=== PATIENT | male | born 1950 | race Caucasian/White ===

== ENCOUNTER → 2016-11-20 | Outpatient (CLI) | payer OTHER ==
[2016-11-20 13:23] LABS: CHOLESTEROL/HDL RATIO 4.5
== END | disposition home or self-care (01) ==
LOC: C.LABMFLN 07:18
PROVIDERS: ATTEND Family Medicine
DX: R73.09 Other abnormal glucose (principal); E78.5 Hyperlipidemia, unspecified

== ENCOUNTER 2020-07-14 06:40 | Observation (INO) ==
--- NOTE | 2020-06-08 15:41 | PAT Medication Instructions ---
Medication Instructions Date of Service June 08, 2020 Home Medications Medication Instructions Recorded amlodipine 5 mg tablet 5 mg PO DAILY #90 tab 04/21/20 tamsulosin 0.4 mg capsule 0.4 mg PO QAM amlodipine 5 mg tablet 5 mg PO DAILY Take morning of surgery With a small sip of water, OTHERWISE NOTHING TO EAT OR DRINK AFTER MIDNIGHT: tamsulosin 0.4 mg capsule 0.4 mg PO QAM amlodipine 5 mg tablet 5 mg PO DAILY Other Notes If you have any questions please call us at [phone] or [phone] or [phone] or [phone]
--- NOTE | 2020-06-12 09:56 | Anesthesiology Consultation ---
Date of Service June 12, 2020 Assessment & Plan (1) Encounter for pre-operative examination: COVID screening: Per assessment on 06/12: Travel screen negative, no known COVID- 19 positive contacts or current COVID-19 related symptoms. Patient is fully vaccinated. Surgeon arranging preop COVID testing. Awaiting results. Chart Review Chart Review: Acceptable Risk for Surgery and Patient seen in Pre Admission Testing Teaching & Discussion Pre-Anesthesia Teaching/Discussion Notes: Instructed NPO after midnight before surgery,except medications with 15 cc of water. Medication instructions provided according to the PAT guidelines. History Surgery Operation Date: 07/14/20 07:15 Proposed Procedures p Left Total Knee Arthroplasty - Claudio Sanders MD Height/Weight Height: 5 ft 6 in Weight: 84.3 kg Allergies Allergy/AdvReac Type Severity Reaction Status Date / Time No Known Drug Allergies Allergy Verified 05/30/20 11:18 Medications Home Medications Medication Instructions Recorded Confirmed Last Taken tamsulosin 0.4 mg capsule 0.4 mg PO QAM #30 cap 01/14/19 05/30/20 Unknown amlodipine 5 mg tablet 5 mg PO DAILY #90 tab 04/21/20 05/30/20 Unknown Wheeled Walker #1 ea 06/12/20 06/12/20 Unknown Past Medical History Medical History BPH (benign prostatic hyperplasia) History of basal cell carcinoma History of kidney stones History of squamous cell carcinoma in situ of skin Hx of migraines Hypertension Osteoarthritis Exercise / Class Metabolic Activity II 4-5 Yardwork/Stairs/Walk up hill Past Family History Family History Father Diabetes Family history of diabetes mellitus Daughter Breast cancer Mother Ovarian cancer Uncle Prostate cancer Other No family history of adverse response to anesthesia Denies family history of Myocardial infarction Colorectal cancer Past Surgical History Surgical History H/O arthroscopic knee surgery Left History of colonoscopy History of lithotripsy History of tooth extraction Status post Mohs surgery on scalp Past Anesthesia History No Family Hx of Anesthesia Complications and Other ("slow to wake" x1 episode, no known hx of reintubation) History of PONV History of PONV (x1 remote episode) and Hx of Motion Sickness Social History Smoking Status: Former smoker tobacco type: cigarettes Do You Dip or Chew Tobacco: No Smoking End Date: Quit age 18 Hx Alcohol Use: Yes alcohol intake frequency: holidays/special occasions only Hx Substance Use: No substance use type: does not use Review of Systems Patient denies chest pain, shortness of breath, dyspnea on exertion, fever, chills, cough, wheezing, palpitations. Physical Exam Vital Signs VITALS BP 145/77 P 64 TEMP 98.0 SP02 97%RA RESP 16 PHYSICAL Full cervical extension range of motion. Full TMJ range of motion. TMD 3 finger breaths Mallampati Score 3 Dentition: intact, + gold crowns (molars) Lungs: clear throughout to auscultation Cardiac: regular rate and rhythm, no murmurs noted Spine: normal Carotid arteries: negative bruit Extremities: no edema Testing Laboratory Results 06/12/20 10:12 06/12/20 10:12 PT 10.7 Seconds (9.0-12.0) 06/12/20 10:12 INR 1.1 (0.9-1.1) 06/12/20 10:12 APTT 27.1 Seconds (21.0-31.0) 06/12/20 10:12 Blood Type O Negative 06/12/20 10:12 Antibody Screen NEGATIVE 06/12/20 10:12 Electrocardiogram Date: 11/29/19 Findings: + NSR @ (65) Chest X-Ray Date: 06/12/20 FINDINGS: Cardiomediastinal and hilar silhouettes are within normal limits. Calcified plaque the thoracic aorta. No pneumothorax, pleural effusion, airspace consolidation or overt pulmonary edema. Bones of the chest appear grossly intact. IMPRESSION: No acute process.
[2020-06-12 10:29] LABS: Basophils # (auto) 0.03 K/uL (0-0.2); Basophils % (auto) 0.4 %; Eosinophils # (auto) 0.11 K/uL (0-0.5); Eosinophils % (auto) 1.6 %; Hemoglobin 15.4 g/dL (14.0-18.0); Immature Granulocytes # (auto) 0.01 K/uL (0.00-0.02); Immature Granulocytes % (auto) 0.1 %; Lymphocytes # (auto) 1.77 K/uL (1.2-3.4); Lymphocytes % (auto) 26.5 %; Mean Corpuscular Hemoglobin 27.9 pg (25-34); Mean Corpuscular Hgb Conc 34.2 g/dL (32-36); Mean Corpuscular Volume 81.7 fL (80-100); Mean Platelet Volume 9.4 fL (7.4-10.4); Monocytes # (auto) 0.66 K/uL (0.11-0.59); Monocytes % (auto) 9.9 %; Neutrophils # (auto) 4.09 K/uL (1.4-6.5); Neutrophils % (auto) 61.5 %; Platelet Count 261 K/uL (130-400); RDW Coefficient of Variation 12.8 % (11.5-14.5); RDW Standard Deviation 38.5 fL (36.4-46.3); Red Blood Count 5.51 M/uL (4.7-6.1); White Blood Count 6.67 K/uL (4.8-10.8)
--- NOTE | 2020-06-12 10:46 | XRay Report ---
XR chest Pre-admission PA/Lat HISTORY: 70 years-old Male pat chronic left knee pain. Osteoarthritis. Preoperative examination of t he chest. COMPARISON: None TECHNIQUE: PA and lateral views of the chest FINDINGS: Cardiomediastinal and hilar silhouettes are within normal limits. Calcified plaque the thoracic aorta . No pneumothorax, pleural effusion, airspace consolidation or overt pulmonary edema. Bones of the ch est appear grossly intact. IMPRESSION: No acute process. ACT 112: Negative or not required by law. The above report was generated using voice recognition software. It may contain grammatical, syntax o r spelling errors. Electronically signed by: Fernando Moreland M.D. 06/12/2020 10:45 AM
[2020-06-12 10:47] LABS: INR 1.1 (0.9-1.1); Partial Thromboplastin Time 27.1 Seconds (21.0-31.0); Prothrombin Time 10.7 Seconds (9.0-12.0)
[2020-06-12 11:40] LABS: BUN Creatinine Ratio 15.4 (10-20); Calcium 8.7 mg/dl (8.5-10.1); Est GFR (Non-African American) 70.8; Potassium 4.2 mmol/L (3.5-5.1)
--- NOTE | 2020-07-08 09:13 | History and Physical Report ---
DATE OF ADMISSION: 07/14/2020 CHIEF COMPLAINT: Persistent left knee pain and discomfort. HISTORY OF PRESENT ILLNESS: The patient is a 70-year-old gentleman who presents specifically for surgical treatment of his left knee. He has been a long-term patient of mine and I scoped his left knee 12 years ago. He did pretty well, but over the past 5 years, he developed increased pain, discomfort, deformity and instability in his knee. He has been through extensive conservative treatment including therapy, injections, and oral medicines which have become less successful over time. He has got pretty global pain in his knee. It is increased with weightbearing. He limps more as the day goes on. It swells more as the day goes on. He now would like to have his knee fixed. PAST MEDICAL HISTORY: 1. Hypertension. 2. BPH. 3. Kidney stones. 4. Squamous cell skin cancer. PAST SURGICAL HISTORY: 1. Left knee arthroscopy done 12/07/2008. 2. Lithotripsy. ALLERGIES: None. CURRENT MEDICATIONS: 1. Amlodipine. 2. Tamsulosin. SOCIAL HISTORY: A 70-year-old male. Very active. Does not smoke. FAMILY HISTORY: Significant for diabetes, breast cancer, ovarian cancer, prostate cancer, colorectal cancer, coronary artery disease. REVIEW OF HISTORY: Negative for diabetes, neurologic problem, vascular problems or bleeding disorders. No chest pain or shortness of breath. No history of DVT or PE. No bleeding problems. PHYSICAL EXAMINATION GENERAL: Shows a pleasant, middle-aged male, looks to be in pretty good health. HEENT: Benign. NECK: Supple, no lymphadenopathy. LUNGS: Clear to auscultation. HEART: Has a regular rate and rhythm. ABDOMEN: Soft, nontender, nondistended. EXTREMITIES: Grossly neurovascularly intact except as follows. Examination of the left knee reveals the patient ambulates independently. He does limp a little bit on this left side. He has got varus alignment to his knee with a varus thrust with weightbearing. He has got well-healed arthroscopic portal sites. Small knee effusion. He is tender over the medial joint line. Range of motion about 5 degrees short of full extension to 125 degrees of flexion. There is no instability. X-RAYS: X-rays of the left knee reviewed. It shows advanced left knee DJD. He has got complete loss of his medial joint space. He has got subchondral sclerosis. He has got osteophytes off the medial femoral condyle and medial tibial plateau. ASSESSMENT: A 70-year-old male with a history of a left knee arthroscopy 12 years ago with progressive left knee pain and discomfort and advanced degenerative joint disease. He has failed conservative treatment and would like to have his left knee replaced. PLAN: We will take him to the operating room and do a left total knee replacement. The risks and benefits of this procedure were explained to the patient including but not limited to DVT, PE, , infection, neurological injury, vascular injury, bleeding problem, pain, limited range of motion, stiffness, failure to relieve symptoms, incomplete relief of symptoms, need for further surgery in the future, fracture, leg length inequality, nerve palsy, etc. The patient understands and desires to proceed. Informed consent was obtained. As far as discharge plans, he is planning to be discharged to home using [facility] home health program.
[~2020-07-14 06:40] MED LIST: ACETAMINOPHEN 500 MG TAB PO SCH; BUPIVACAINE 0.5 % 5 MG/1 ML PF 10ML VIAL ONE; BUPIVACAINE LIPOSOME/PF 266 MG, BUPIVACAINE/EPINEPHRINE 50 ML, SODIUM CHLORIDE 0.9% 30 ... INFIL SCH; EPINEPHrine INJ 1 MG/ML AMP ONE; FAMOTIDINE 20 MG TAB PO SCH; GABAPENTIN 300 MG CAP PO SCH; LR 500ML BOLUS, THEN 15ML/HR IV SCH; LR 60ML/HR IV SCH; METOCLOPRAMIDE HCL 10 MG TABLET PO SCH; ROPIVACAINE 0.5% 5 MG/ML 30 ML VIAL ONE; TRANEXAMIC ACID 1,000 MG **IV Intra-op IV SCH
--- NOTE | 2020-07-14 06:53 | History & Physical Bridge Note ---
Date of Service July 14, 2020 History & Physical Bridge Note I have examined the patient, reviewed the History & Physical and in the interval since the performance of the History & Physical I have noted the following changes of clinical significance: no changes noted
[2020-07-14] MEDS ORDERED: MIDAZOLAM HCL 1 MG/ML 2ML VIAL ONE (07:19)
[2020-07-14] MEDS ORDERED: fentaNYL citrate 100 MCG/2 ML VIAL ONE (07:19)
[2020-07-14] MEDS ORDERED: SODIUM CHLORIDE 0.9% PF 50 ML VIAL ONE (08:55)
[2020-07-14] MEDS ORDERED: BUPIVACAINE LIPOSOME 1.3% 266 MG/20 ML VIAL ONE (08:55)
[2020-07-14] MEDS ORDERED: BUPIVACAINE 0.25% 30 ML VIAL ONE (08:56)
[2020-07-14] MEDS ORDERED: EPINEPHrine INJ 1 MG/ML AMP ONE ×2 (08:56→09:08)
[2020-07-14] MEDS: ceFAZolin 2000MG 2,000 MG/15 ML SYR IV SCH ×3 (09:08→18:16)
[2020-07-14] MEDS ORDERED: ePHEDrine sulfate 50 MG/ML AMP IV PRN (09:14)
[2020-07-14] MEDS ORDERED: ATROPINE SULFATE 0.1 MG/ML 10ML SYR IV PRN (09:14)
[2020-07-14] MEDS ORDERED: PROPOFOL IV EMULSION 10 MG/ML 20 ML VIAL IV ONE ×3 (09:16→10:01)
[2020-07-14] MEDS ORDERED: ONDANSETRON INJ 2 MG/ML 2 ML VIAL ONE (09:52)
--- NOTE | 2020-07-14 11:06 | Operative Report ---
Post Operative Report Pre & Post Diagnosis Operation Date: 07/14/20 08:50 Pre-Op Diagnosis: Left Knee Advanced Degerative Joint Disease Post-Op Diagnosis: Left Knee Advanced Degenerative Joint Disease I identified the patient and participated in the time-out.: Yes Procedure Operation Date: 07/14/20 08:50 Actual Procedures p Left Total Knee Arthroplasty(Left) - Claudio Sanders MD Surgeon Claudio Sanders MD Documentation Improvement Specialist VICTORIA Colunga Estimated Blood Loss 50 Findings Consistent with Post-Op Diagnosis Operative findings revealed advanced left knee DJD with extensive grade 4 [id number] disease and eburnation of the medial compartment. He had a varus deformity to his knee and a flexion contracture. Moderate-sized joint effusion. Fluids 700 cc. Specimens Left knee sent for pathology. Drains None Anesthesia Type Spinal MAC Complications none Disposition Accompanied Patient To Recovery: No Disposition: Recovery Room Indications Patient 70-year-old fairly active gentleman has had a long history of left knee problems. He had his left knee scoped about 12 years ago did pretty well until about 5 years ago when he started up increased pain discomfort. He has been through extensive conservative treatment of years which became less successful. X-rays show advanced medial compartment arthritis. He elected proceed with surgical treatment. Description of Procedure Operative implants consisted of: 1 Biomet Vanguard size 67.5 left posterior stabilized femoral component. 2. Biomet size 75 tibial tray. 3. 12 mm posterior stabilized polyethylene insert. 4. 31 x 8 all polypatella. The patient was taken to the operating, identified, placed on the operating table supine position but all contact areas were properly padded. IV antibiotics tried by anesthesia team. A spinal anesthetic and abductor canal block had provided in the holding area. Scott catheter was placed in sterile fashion for the left atrium was then placed in the left lower extremities and prepped draped in usual sterile fashion. The left leg was elevated exsanguinated with use of an Esmarch and turns placed at 3 mmHg. An anterior approach to the left knee was then performed to longitudinal incision centered over the patella. Sharp dissection was carried through subcutaneous tissue down the extensor mechanism. Medial parapatellar arthrotomy incision was made. Some subperiosteal dissection was carried out medially. The fat pad was resected from each patella tendon. Lateral patellofemoral ligament was released. Patella subluxated laterally and the knee was flexed. Of note there was quite a bit of scarring underneath the patella te ndon I took great care to remove the fat tab without damaging the tendon. The patella was subluxated laterally. The knee was flexed. Lateral patellofemoral ligament was released. The osteophytes were taken off distal femur. The ACL and PCL were then released from distal femur and the tibia subluxated anteriorly. The external treatment line jig was then placed in the interface the tibia and adjusted 16 mm medially. Proximal tibial cut was made remove about a millimeter bone from most efficient aspect medial till plateau. Some osteophytes were taken off medial and posterior medially. Tibia sized to a size 75. Attention drawn the femur. The distal femur exam with a sharp drop with intramedullary canal was suction. A left 6 degree valgus cutting guide was placed. Distal femoral cutting block was pinned in place but distal femoral cut was made to take an additional 3 mm of bone off distal femur. The femur was then sized to a size 67.5. The AP cutting block was pinned parallel to the epicondylar axis which was 4 degrees of external rotation. The anterior cut, anterior chamfer, posterior cut, posterior chamfer cuts were made. The box cutting guide was placed in just slight lateral and the box cut was made. The knee was flexed. The remnants of the medial and lateral menisci were excised. The osteophytes were taken off the posterior aspect of femur. Trial femoral component was placed. The tibial tray was pinned in maximum external rotation and the drill and stem punch were used to create defect in proximal tibia for the tibial tray. The knee was then trialed and 12 mm insert fit most appropriately. Attention was then drawn to the patella. Patella was cleaned of all soft tissue. Patella thickness measured 23 mm in thickness was cut down to 15. Was sized to a size 31 patella. The lug holes were drilled for 31 patella. The lateral osteophyte is moved. Patella button was placed. Knee was taken through range of motion patella tracked nicely with no thumbs test. Attention drawn to place the permanent components. All trial components were removed. Bone plug was placed in the distal femur limit blood loss put a double batch Palacos G cement was mixed. A Biomet Calcivisguard size 67.5 left posterior stabilized femoral component, a size 75 tibial tray, a 12 mm posterior stabilized polyethylene insert, and a 31 x 8 all polypatella were then cemented in place. The knee was brought out into full extension until cement hardened. Final cement check was then performed. The pericapsular tissues were injected with total 100 cc of combination of 20 cc of Exparel, 30 cc normal saline, 50 cc of quarter percent Marcaine with epinephrine. Patient did receive 1 g tranexamic acid per the tourniquet was then let down for final tourniquet time of 61 minutes. Hemostasis assured use electrocautery. Extensor mechanism closed with combination 1 PDS suture #1 Vicryl suture in [id number] fashion. Extensor mechanism checked found to be intact with subcutaneous tissue then closed with 2 Dexon suture in buried nerve fascia skin was closed skin jerry. Legs then cleaned and dried a sterile dressing was Xeroform, 4 x 4's, sterile cast padding, Rhys bandage were applied. Patient then transferred to the recovery room in stable condition. Patient tolerated the procedure well and there were no complications. Karl Colunga, my physician social science research assistant, was present for the entire procedure. His assistance was essential and required for appropriate patient positioning, prepping and draping, surgical exposure, performing the technical details of the operation, placement the implants, closure of the wound, and placement of the sterile bandage. I attest to the content of the Intraoperative Record and any orders documented therein. Any exceptions are noted below.
[2020-07-14] MEDS ORDERED: oxyCODONE HCL IR 5 MG TAB (IMMEDIATE RELEASE) PO PRN ×2 (11:20→12:50)
[2020-07-14] MEDS ORDERED: diphenhydrAMINE 50 MG/ML VIAL IV STA (11:23)
--- NOTE | 2020-07-14 11:23 | XRay Report ---
XR knee LT 1 or 2V routine HISTORY: 70 years-old Male Surgical Post Op left knee total joint arthroplasty COMPARISON: Left knee radiographs 06/12/2020 TECHNIQUE: 2 views of the left knee FINDINGS: Left knee total joint arthroplasty and patella resurfacing. Anterior midline skin jerry are noted a long with expected postsurgical soft tissue swelling and deep tissue air. No acute fracture, alignmen t or opaque foreign body. IMPRESSION: Left knee total joint arthroplasty with expected postoperative changes. ACT 112: Negative or not required by law. The above report was generated using voice recognition software. It may contain grammatical, syntax o r spelling errors. Electronically signed by: Devonte Moreland M.D. 07/14/2020 11:21 AM
[2020-07-14] MEDS ORDERED: diphenhydrAMINE 50 MG/ML VIAL ONE (11:24)
--- NOTE | 2020-07-14 11:41 | Anesthesiology Progress Note ---
Date of Service July 14, 2020 Anesthesia Post Procedure Vital Signs Vital Signs: Temp Pulse Resp BP Pulse Ox 07/14/20 11:36 36.2 C L 63 17 114/62 95 07/14/20 11:25 66 15 101/60 94 07/14/20 11:15 74 19 95/62 L 93 07/14/20 11:05 75 18 93/59 L 93 07/14/20 10:59 36.3 C L 69 17 103/54 L 92 07/14/20 07:36 37.2 C 62 16 145/77 H 95 Transfer of Care Handoff Completed per policy Notes Mental Status: alert / awake / arousable Patient Amnestic to Procedure: Yes Nausea / Vomiting: adequately controlled Pain: adequately controlled Airway Patency, RR, SpO2: stable & adequate BP & HR: stable & adequate Hydration State: stable & adequate Neuraxial Anesthesia: was administered and sensory block is resolving Anesthetic Complications: no major complications apparent
[2020-07-14] MEDS ORDERED: NALOXONE HCL 0.4 MG/1 ML VIAL/CARP IV PRN (12:50)
[2020-07-14] MEDS ORDERED: ALUMINUM/MAGNESIUM SUSP 30 ML UDC PO PRN (12:50)
[2020-07-14] MEDS ORDERED: ONDANSETRON INJ 2 MG/ML 2 ML VIAL IV PRN (12:50)
[2020-07-14] MEDS ORDERED: NON-FORMULARY MEDICATION (Doxycycline Monohydrate 100 mg capsule) PO SCH (12:50)
[2020-07-14] MEDS ORDERED: HYDROmorphone INJ 0.5 MG/0.5 ML SYR IV PRN (12:50)
[2020-07-14] MEDS ORDERED: METOCLOPRAMIDE HCL INJ 5 MG/ML 2 ML VIAL IV PRN (12:50)
[2020-07-14] MEDS ORDERED: bisacodyL 10 MG SUPP PR PRN (12:50)
[2020-07-14] MEDS ORDERED: MAGNESIUM HYDROXIDE SUSP 30 ML UDC PO PRN (12:50)
[2020-07-14] MEDS: KETOROLAC TROMETHAMINE 15 MG/ML VIAL IV SCH ×3 (13:17→22:16)
[2020-07-14] MEDS: ACETAMINOPHEN 500 MG TAB PO SCH ×2 (13:17→21:31)
[2020-07-14] MEDS ORDERED: SODIUM CHLORIDE 0.9% 1000ML 1,000 ML IV SCH (13:30)
[2020-07-14] MEDS ORDERED: ACETAMINOPHEN 500 MG TAB PO SCH (14:00)
[2020-07-14] MEDS ORDERED: TRANEXAMIC ACID / 0.7% NACL 1,000 MG/100 ML BAG IV SCH (17:00)
[2020-07-14] MEDS: FERROUS GLUCONATE 324 MG TAB PO SCH (17:45)
[2020-07-14] MEDS: ASCORBIC ACID 500 MG TAB PO SCH (17:46)
[2020-07-14] MEDS ORDERED: SENNA 8.6 MG TAB PO SCH (21:00)
[2020-07-14] MEDS ORDERED: ASPIRIN 81 MG ECTAB PO SCH (21:00)
[2020-07-14] MEDS: TAPENTADOL HCL ER 50 MG TABCR PO SCH (21:29)
[2020-07-14] MEDS: ASPIRIN 81 MG ECTAB PO SCH (21:30)
[2020-07-14] MEDS: DOCUSATE SODIUM 100 MG CAP PO SCH (21:31)
[2020-07-15] MEDS: ceFAZolin 2000MG 2,000 MG/15 ML SYR IV SCH (03:08)
[2020-07-15] MEDS: KETOROLAC TROMETHAMINE 15 MG/ML VIAL IV SCH ×2 (06:04→11:47)
[2020-07-15 06:24] LABS: Hemoglobin 14.2 g/dL (14.0-18.0); Mean Corpuscular Hemoglobin 28.3 pg (25-34); Mean Corpuscular Hgb Conc 33.8 g/dL (32-36); Mean Corpuscular Volume 83.8 fL (80-100); Mean Platelet Volume 9.8 fL (7.4-10.4); Platelet Count 227 K/uL (130-400); RDW Coefficient of Variation 13.6 % (11.5-14.5); RDW Standard Deviation 40.9 fL (36.4-46.3); Red Blood Count 5.01 M/uL (4.7-6.1); White Blood Count 8.16 K/uL (4.8-10.8)
[2020-07-15 06:43] LABS: BUN Creatinine Ratio 14.5 (10-20); Creatinine Clr Calc Pharmacy 69.7 ml/min; Est GFR (Non-African American) 75.9; Potassium 3.9 mmol/L (3.5-5.1)
[2020-07-15] MEDS ORDERED: dexAMETHasone 4 MG TAB PO SCH (08:00)
[2020-07-15] MEDS: ASCORBIC ACID 500 MG TAB PO SCH (08:47)
[2020-07-15] MEDS: FERROUS GLUCONATE 324 MG TAB PO SCH (08:48)
[2020-07-15] MEDS: ACETAMINOPHEN 500 MG TAB PO SCH (08:49)
[2020-07-15] MEDS: ASPIRIN 81 MG ECTAB PO SCH (08:50)
[2020-07-15] MEDS: DOCUSATE SODIUM 100 MG CAP PO SCH (08:50)
--- NOTE | 2020-07-15 08:57 | Progress Notes ---
DATE: 07/15/2020 SUBJECTIVE: A 70-year-old gentleman postop day 1 from a left knee replacement. He is doing pretty well. Pain is controlled. He had a reasonable night. No chest pain or shortness of breath. Not feeling dizzy or lightheaded. OBJECTIVE: VITAL SIGNS: Temperature 36.7. Vital signs stable. GENERAL: Shows a pleasant, middle-aged male. He is sitting up in bed and eating breakfast. Looks comfortable. LUNGS: Clear to auscultation. HEART: Regular rate and rhythm. ABDOMEN: Soft, nontender, nondistended. EXTREMITIES: Grossly neurovascularly intact except as follows. Examination of the left leg reveals the dressing to be clean, dry, and intact. He can dorsiflex and plantarflex his foot appropriately. He is neurologically intact. He has got brisk refill. LABORATORY DATA: Hemoglobin 14.2. Hematocrit 42.0. Electrolytes are stable. ASSESSMENT: A 70-year-old gentleman postop day 1 from left knee replacement, doing well. Pain is controlled. He is neurologically intact. PLAN: 1. DVT prophylaxis including thigh-high TEDs, SCDs, and aspirin twice a day. 2. PT/OT. Weight bear as tolerated. Left total knee protocol. 3. Pain control, doing well with current pain regimen. 4. Disposition: Plan to discharge to home with some home health likely later today if does okay in therapy and pain controlled.
[2020-07-15] MEDS ORDERED: amLODIPine BESYLATE 5 MG TAB PO SCH (09:00)
[2020-07-15] MEDS ORDERED: MULTIVITAMIN TAB PO SCH (09:00)
[2020-07-15] MEDS ORDERED: TAMSULOSIN HCL 0.4 MG CAP PO SCH (09:00)
[2020-07-15] MEDS: TAPENTADOL HCL ER 50 MG TABCR PO SCH (09:01)
--- NOTE | 2020-07-16 15:50 | Discharge Summary ---
Date of Service July 16, 2020 Discharge Data Procedures Performed Operation Date: 07/14/20 08:50 Actual Procedures p Left Total Knee Arthroplasty(Left) - Claudio Sanders MD Hospital Course (1) Status post total left knee replacement: This patient is a 70 year old male admitted on 07/14/20 and underwent total knee arthroplasty. He tolerated the procedure well and there were no complications. Transferred to the PACU post op and later to the orthopedic floor for further care. He was given ancef for antibiotic prophylaxis. He was also given YEIMY stockings, SCDs, and aspirin for DVT prophylaxis. Hemoglobin, hematocrit, and vital signs were monitored during his hospital stay and remained stable. Did not require any blood transfusions. There were no complications during his hospital stay. By post op day #1 the patient was tolerating a regular diet, pain was reasonably controlled with oral pain medicine, and he was participating in physical therapy. On post op day #1 the patient was discharged home and set up with home health care. He was given printed discharge instructions including prescriptions for extra strength tylenol, aspirin, and tramadol. Continue physical therapy, weight bearing as tolerated. Continue YEIMY stockings. Follow up approximately 2 weeks post op or sooner if there are problems or concerns. Coding Level of Care Code None Diagnoses Status post total left knee replacement Z96.652
== END 2020-07-15 13:20 | disposition home health service (06) ==
LOC: 3E 06:40 → ASU 06:40